=== PATIENT | female | born 1965 | race Caucasian/White ===

== ENCOUNTER → 2021-03-16 | Outpatient (CLI) | payer OTHER ==
[2021-03-16 17:03] LABS: HEMOGLOBIN 14.9 gm/dl (12.3-15.3); RED BLOOD COUNT 4.88 M/UL (4.00-5.10); WHITE BLOOD COUNT 8.5 K/UL (4.5-11.0)
== END ==
LOC: LAB 16:39
PROVIDERS: Surgery
DX: I10 Essential (primary) hypertension (principal); R60.0 Localized edema; I89.0 Lymphedema, not elsewhere classified; I87.2 Venous insufficiency (chronic) (peripheral); I78.1 Nevus, non-neoplastic
CPT/HCPCS: 80048; 85027; 85610